=== PATIENT | female | born 1960 | race Caucasian/White ===

== ENCOUNTER 2017-12-07 11:35 | Emergency (ER) | payer OTHER ==
[~2017-12-07] VITALS: Ht 154.9 cm; Wt 54.4 kg
[~2017-12-07 11:35] MED LIST: ASPIRIN LOW DOS81 M1 PO; LISINOPRIL2.5 MG PO; NORVASC5 MG PO; PRAVACHOL10 MG PO; ZANTAC150 MG PO
[2017-12-07] MEDS ORDERED: ANTIBIOTIC28.4 GM T (12:48)
[2017-12-07] MEDS ORDERED: CEPHALEXIN500 M1 PO (12:48)
== END 2017-12-07 12:50 | disposition home or self-care (01) ==
LOC: ED 11:35
DX: S61.211A Laceration without foreign body of left index finger without damage to nail, initial encounter (principal); Z88.0 Allergy status to penicillin; Z79.82 Long term (current) use of aspirin; Z79.899 Other long term (current) drug therapy; W26.9XXA Contact with unspecified sharp object(s), initial encounter; Y93.89 Activity, other specified; Y92.219 Unspecified school as the place of occurrence of the external cause; Y99.8 Other external cause status